=== PATIENT | male | born 1990 | race Two or more races ===

== ENCOUNTER 2024-03-18 15:33 | Emergency (ER) | payer MEDICAID, SELFPAY ==
[2024-03-18 15:34] VITALS: BMI 34.9
[2024-03-18 15:54] VITALS: BP 165/98; PULSE 80; RESP 20; TEMP 37.4; O2SAT 97
--- NOTE | 2024-03-18 15:57 | XR_ITS ---
Examination: CT abdomen and pelvis without contrast. Coronal 3-D reconstructions. Sagittal 2-D reconstructions. Date and time of exam:March 18, 2024 1622 hours INDICATIONS: Onset right-sided flank pain today CTDI: vol (mGy): 12.5 DLP: (mGycm): 836 Technique: Axial images of the abdomen have been obtained, 3 mm slice thickness Intravenous contrast material has not been administered. Low dose protocols were performed. One or more of the following dose reduction techniques were used; automated exposure control, adjustment of the mA and/or KV according to patient size, use of iterative reconstruction technique. Findings: Diffuse fatty infiltration throughout the liver Contracted gallbladder Spleen not enlarged No pancreatic or adrenal mass No renal or ureteral calculi, however, there is minimal inflammatory change along the entire course of the right ureter 17 mm left renal cyst Aorta normal size Normal appendix No bowel obstruction No diverticulitis No bladder mass or bladder calculi No prostatomegaly IMPRESSION: No renal or ureteral calculi, however, there is minimal inflammatory change along the entire course of the right ureter, consider right urinary tract infection
--- NOTE | 2024-03-18 15:57 | PD.EDRME ---
Rapid Medical Screening Exam RME Arrival date/time: 03/18/24 15:33 33-year-old male presents emergency department complains of right flank pain radiating to the right inguinal region Chief Complaint: Abdominal Pain Time Seen by Provider: 03/18/24 15:44 Vital signs: Vital Signs Temperature 99.3 F 03/18/24 15:54 Pulse Rate 80 03/18/24 15:54 Respiratory Rate 20 03/18/24 15:54 Blood Pressure 165/98 H 03/18/24 15:54 Pulse Oximetry (%) 97 03/18/24 15:54 Oxygen Delivery Method Room Air 03/18/24 15:54
[2024-03-18] MEDS: ONDANSETRON ODT 4 MG TABRAP PO (16:09)
[2024-03-18] MEDS: KETOROLAC INJ 30 MG/ML VIAL IM (16:10)
[2024-03-18 16:29] LABS: Basophils # (Auto) 0.1 Thou/mm3 (0.0-0.2); Basophils % (Auto) 0 % (0-2.5); Eosinophils # (Auto) 0.3 Thou/mm3 (0.0-0.5); Eosinophils % (Auto) 2 % (0-10); Hematocrit 43.5 % (41.0-53.0); Immature Granulocytes % (Auto) 1 % (0-0); Immature Granulocytes Auto 0.07 Thou/mm3 (0.00-0.00); Lymphocytes # (Auto) 2.3 Thou/mm3 (1.0-4.8); Lymphocytes % (Auto) 17 % (10-50); Mean Corpuscular HGB Conc 34.5 g/dl (31.0-37.0); Mean Corpuscular Volume 87 fL (80-100); Monocytes % (Auto) 7 % (0-12); Neutrophils # (Auto) 9.8 Thou/mm3 (1.8-7.7); Neutrophils % (Auto) 73 % (37-80); Nucleated Red Blood Cell % 0 /100 WBC (0); Platelet Count 290 Thou/mm3 (140-440); RDW Standard Deviation 39.4 fL (35.1-43.9); White Blood Count 13.5 Thou/mm3 (3.8-10.6)
[2024-03-18 16:49] LABS: Alanine Aminotransferase 48 U/L (10-49); Albumin, Serum 4.7 gm/dL (3.5-5.0); Albumin/Globulin Ratio 1.7 (1.2-2.2); Alkaline Phosphatase 82 U/L (46-116); Anion Gap 4 (7-16); Aspartate Amino Transferase 20 U/L (0-34); BUN/Creatinine Ratio 10 Ratio (12-20); Bilirubin,Total 0.5 mg/dL (0.3-1.2); Blood Urea Nitrogen 12 mg/dL (9-23); Chloride 107 mMol/L (98-107); Creatinine (Component) 1.2 mg/dL (0.6-1.3); Estimated Creatinine Clearance 102.5 mL/min (>60); Globulin 2.7 gm/dL (2.3-3.5); Glucose 110 mg/dL (74-106); Lipase 32 U/L (12-53); Osmolality,Calculated 280 (275-295); Potassium 4.6 mMol/L (3.4-5.1); Sodium 140 mMol/L (136-145); Total Protein 7.4 gm/dL (5.7-8.2); eGFR > 60 See Note
[2024-03-18 18:03] LABS: Collection Type, Urine Clean Catch; Squamous Epithelial Cell,Urine 0 /hpf (0-5)
[2024-03-18 18:31] LABS: Bacteria,Urine 3+; Bilirubin,Urine Negative (Negative); Blood,Urine 3+ (Negative); Color,Urine Yellow (Lt Yel-Yel); Glucose, Urine Negative (Negative); Ketones,Urine Negative (Negative); Leukocyte Esterase,Urine Positive (Negative); Nitrite,Urine Positive (Negative); Protein,Urine 3+ (Neg - Trace); RBC,Urine 44 /hpf (0-3); Specific Gravity,Urine 1.025 (1.001-1.035); Urobilinogen,Urine Negative mg/dL (0.0-1.0); WBC,Urine 555 /hpf (0-5)
[2024-03-18 18:32] LABS: Clarity,Urine Turbid (Clear/Hazy); Culture Indicated,Urine Yes
[2024-03-18 18:44] LABS: Amphetamine/Methamp Scrn,U Negative (Negative); Barbiturate Screen,Urine Negative (Negative); Benzodiazepines Screen,Urine Negative (Negative); Benzoylecgonine Screen, Ur Negative (Negative); Fentanyl Screen,Urine Negative (Negative); Opiate Screen,Urine Negative (Negative); THC Screen,Urine Positive (Negative)
[2024-03-18 20:31] VITALS: BP 169/107; PULSE 80; RESP 18; TEMP 36.7; O2SAT 99
--- NOTE | 2024-03-18 20:53 | PD.EDABDPN ---
ED Abdominal Pain RME/HPI General Chief Complaint: Abdominal Pain Stated complaint: Right flank pain radiating to L Abdomen Time seen by provider: 03/18/24 15:44 Arrival date/time: 03/18/24 15:33 RME / HPI RME / HPI narrative: 33-year-old male presents emergency department complains of right flank pain radiating to the right inguinal region. Onset of symptoms since yesterday. Severity of symptoms mild. Also complained of dysuria. Denies any fever. Denies any vomiting. Denies any other complaints. Related Data Previous Rx's ?Medication ?Instructions ?Recorded amoxicillin 875 mg tablet 875 mg PO BID #20 tabs 09/15/23 ondansetron 4 mg disintegrating 4 mg PO Q8H #14 tabs 09/15/23 tablet cefuroxime axetil 500 mg tablet 500 mg PO BID #14 tabs 03/18/24 Allergies Allergy/AdvReac Type Severity Reaction Status Date / Time No Known Allergies Allergy Verified 08/18/23 20:26 Review of Systems Review of Systems Narrative Review of Systems: Review of system reviewed and within normal limits except mentioned in HPI ED Exam Narrative Physical exam: VITAL SIGNS: Reviewed. GENERAL APPEARANCE: Alert and interactive, follows commands, no acute distress, HEAD AND FACE: Non-traumatic. ENT: PERRL, pink conjunctivitis, eyelid no trauma, Mucous membrane moist. NECK: Supple, nontender, no nuchal rigidity. CHEST: No tenderness, no crepitus, no paradoxical movement, no retractions. LUNGS: Clear, well ventilated, symmetric, no rales, no wheezing, no ronchi, no stridor, good breath sounds bilaterally. HEART: Regular rate, regular rhythm, no murmur, no gallops. ABDOMEN: Soft, positive bowel sounds, nondistended, no guarding, nontender, no rebound, no masses, RECTAL: Deferred. GENITAL: Deferred. NEUROLOGICAL: Gross motor function intact sensory function intact, Appropriate for age. MUSCULOSKELETAL: low back nontender, full range of motion. EXTREMITIES: Nontender, full range of motion. SKIN: Color pink, dry, no rash, no lacerations, no abrasions, no contusions. LYMPHATICS: Deferred. Course Quality Measures none Orders Category Date Time Status CT abdomen pelvis wo con Stat Exams 03/18/24 15:57 Completed CBC Stat Lab 03/18/24 16:06 Completed Comprehensive Metabolic Panel Stat Lab 03/18/24 16:06 Completed Drug Screen,Urine Stat Lab 03/18/24 17:41 Completed Lipase Stat Lab 03/18/24 16:06 Completed UA, C/S IF [Urinalysis, C/S if Indicated] Stat Lab 03/18/24 17:41 Completed Urine Culture Stat Lab 03/18/24 17:41 Received Ketorolac Inj [Toradol Inj] Med 03/18/24 15:56 Discontinued 30 mg IM X1 ONE Ondansetron Odt [Zofran Odt] Med 03/18/24 15:56 Discontinued 4 mg PO X1 ONE cefTRIAXone [Rocephin] 1,000 mg Med 03/18/24 20:48 Discontinued Lidocaine 1% 20 ml [Xylocaine 1% 20 ML] 2.1 ml IM X1 Vital Signs Vital signs: Vital Signs Temperature 99.3 F 03/18/24 15:54 Pulse Rate 80 03/18/24 15:54 Respiratory Rate 20 03/18/24 15:54 Blood Pressure 165/98 H 03/18/24 15:54 Pulse Oximetry (%) 97 03/18/24 15:54 Oxygen Delivery Method Room Air 03/18/24 15:54 Abdominal Pain MDM MDM Narrative MDM Narrative:: 33-year-old male presents emergency department complains of right flank pain radiating to the right inguinal region. Onset of symptoms since yesterday. Severity of symptoms mild. Also complained of dysuria. Denies any fever. Denies any vomiting. Denies any other complaints. Laboratory workup significant for UTI. And slight leukocytosis of 13.5. Creatinine is normal. CT scan of the abdomen and pelvis came back unremarkable. Results discussed with the patient. Patient received ceftriaxone IM Patient data External records reviewed:: None Clinical information provided by:: none Social determinants that could affect healthcare access:: none Patient has the following chronic illnesses:: None How is presenting disease/condition affected by chronic disease/condition?: no chronic disease Evaluation data The following diagnostics were reviewed and interpreted by me:: lab results and radiology exam(s) Lab and/or radiology exams considered but not ordered:: None Interpretation Summary: Laboratory workup significant for UTI. And slight leukocytosis of 13.5. Creatinine is normal. CT scan of the abdomen and pelvis came back unremarkable. Results discussed with the patient. Patient received ceftriaxone IM Medications / Prescriptions Medications or Prescriptions considered but not ordered:: None Medication administrations:: Medication Administration History Discontinued Medications Ceftriaxone Sodium 1,000 mg/ (Lidocaine HCl 2.1 ml) 0 mg IM X1 ONE Stop: 03/18/24 20:49 Ketorolac Tromethamine (Ketorolac Inj 30 Mg/Ml Vial) 30 mg IM X1 ONE Stop: 03/18/24 15:57 Last Admin: 03/18/24 16:10 Dose: 30 mg Documented By: Ondansetron HCl (Ondansetron Odt 4 Mg Tabrap) 4 mg PO X1 ONE; Protocol Stop: 03/18/24 15:57 Last Admin: 03/18/24 16:09 Dose: 4 mg Documented By: Ceftriaxone IM, Toradol and Zofran Consultations Consultation(s) initiated? (list below): No Diagnosis Differential diagnosis abdominal pain: abdominal pain and acute appendicitis Most likely diagnosis given after review of the tests above:: Urinary tract infection Admission Indicated Admission indicated?: indicated Admission Request Was there a request for admission?: No Disposition Plan Disposition Plan: Discharge Discharge Attestation Discharge Attestation: The patient was given an opportunity to ask questions and understood the discharge instructions. Discharge instructions specifically effects, indications for sooner follow up or return to the emergency department, and the expected course of current diagnosis. Patient condition: Stable Discharge Plan Plan Patient Disposition: HOME (Self Care) Disposition Comment: stable Prescriptions/Referrals Prescriptions/Med Rec: New cefuroxime axetil 500 mg tablet 500 mg PO BID Qty: 14 0RF No Action amoxicillin 875 mg tablet 875 mg PO BID Qty: 20 0RF ondansetron 4 mg tablet,disintegrating 4 mg PO Q8H Qty: 14 0RF Referrals: Josesito Rothman MD [Primary Care Provider] - In 1 week Problem List Clinical Impression: UTI (urinary tract infection) Patient/Caregiver Discharge Instructions Discharge Activity: activity as tolerated Education Materials: Understanding Urinary Tract ... Additional Instructions: Thank you for the opportunity for serving you today. You are stable for discharged . You are advised to: Follow-up with your PCP in 1 to 2 days Return to ED for worsening of symptoms Increase oral fluids Take medication as prescribed Print Language: [place]i Stand Alone Forms: Kanchan Award Info., Patient Portal Info Letter PREMA/SIVAN Supervising Physician PREMA/SIVAN Supervising Physician: MD Edison
[2024-03-18] MEDS: cefTRIAXone 1,000 MG, LIDOCAINE 1% 20 ML 2.1 ML IM (20:57)
== END 2024-03-18 21:01 | disposition home or self-care (01) ==
PROVIDERS: Nurse Practitioner Primary Care; Emergency Provider Emergency Medicine; PCP Family Medicine
DX: N39.0 Urinary tract infection, site not specified (principal); R10.9 Unspecified abdominal pain
CPT/HCPCS: 36415; 74176; 80053; 80307; 81001; 83690; 85025; 87077; 87086; 87186; 96372; 99284; J0696; J1885; J3490; Q0162

== ENCOUNTER 2024-12-05 22:37 | Emergency (ER) | payer MEDICAID, SELFPAY ==
[2024-12-05 22:39] VITALS: BMI 34.9
--- NOTE | 2024-12-05 22:41 | XR_ITS ---
Examination: Hand, right 3 views Technique: Hand AP, oblique, lateral 3 views Date and time of exam: December 05, 2024 10:40 PM INDICATIONS: Punching injury to the hand today, hand pain. FINDINGS: Acute impacted mildly angulated fracture distal fourth metacarpal No dislocation No foreign body IMPRESSION: Acute fracture distal fourth metacarpal
[2024-12-05 23:36] VITALS: BP 144/80; PULSE 91; RESP 18; TEMP 36.6; O2SAT 97
[2024-12-06] MEDS: IBUPROFEN TAB 600 MG TABLET PO (00:48)
--- NOTE | 2024-12-06 01:05 | EDNOTE_ITS ---
Upper Extremity Injury RME/HPI General Chief Complaint: Hand/Wrist Problems Stated Complaint: RIGHT HAND INJURY Time Seen by Provider: 12/05/24 23:42 Arrival date/time: 12/05/24 22:37 RME / HPI RME / HPI narrative: 34-year-old male presents to the ED with complaint of right hand pain and swelling secondary to an injury he sustained last Friday or Friday when he punched the corner of a wall. He was angry at the time. He denies any previous injury of the right hand. He denies any numbness or tingling distally. Related Data Previous Rx's ?Medication ?Instructions ?Recorded amoxicillin 875 mg tablet 875 mg PO BID #20 tabs 09/14 ondansetron 4 mg disintegrating 4 mg PO Q8H #14 tabs 0 09/15/23 tablet cefuroxime axetil 500 mg tablet 500 mg PO BID #14 tabs 03/18/24 ibuprofen 600 mg tablet 600 mg PO Q8H PRN pain #30 t abs 12/06/24 Allergies Allergy/AdvReac Type Severity Reaction Status Date / Time No Known Allergies Allergy Verified 12/05/24 22:38 Review of Systems Review of Systems Systems Reviewed: All systems reviewed, normal except as documented Past Medical History Past Medical History CARDIAC: Negative Congestive Heart Failure RESPIRATORY: Negative Chronic Obstructive Pulmonary Disease (COPD) GENITOURINARY: Negative Renal Disease ENDOCRINE: Negative Diabetes Mellitus Type 1 or Diabetes Mellitus Type 2 Social History SMOKING STATUS: Never smoker ED Exam Narrative Physical exam: A&O, afebrile and non-toxic appearing 34-year-old male, no acute distress. Lung sounds are clear, RRR. Right hand swelling with tenderness to the 3rd, 4th, and 5th MCP joints. Significant pain to the fourth MCP joint. CMS intact distally. Moves all extremities well. Course Course Course Narrative: XR right hand reveals: Acute fracture, distal fourth metacarpal. Patient was given ibuprofen 600 mg p.o. Ulnar gutter splint and sling placed on the patient. CMS intact distally. Patient feels much improved after splint placement. Quality Measures none Orders Category Date Time Status Splint / Immobilizer STAT Care 12/06/24 00:41 Active XR hand comp RT min 3V Stat Exams 12/05/24 22:41 Completed Ibuprofen Tab [Motrin Tab] Med 12/06/24 00:41 Discontinued 600 mg PO X1 ONE Vital Signs Vital signs: Vital Signs Temperature 98 F 12/05/24 23:36 Pulse Rate 91 12/05/24 23:36 Respiratory Rate 18 12/05/24 23:36 Blood Pressure 144/80 H 12/05/24 23:36 Pulse Oximetry (%) 97 12/05/24 23:36 Oxygen Delivery Method Room Air 12/05/24 23:36 Extremity Injury MDM Narrative MDM Narrative:: Symptoms, exam and diagnostic studies are consistent with: Right distal fourth metacarpal fracture/boxer's fracture. Patient was discharged home in stable condition. Patient/family advised to follow-up with their PCP in 24-48 hours. Encouraged to return to the ED for any new or worsening symptoms. Patient data External records reviewed:: None Clinical information provided by:: patient Social determinants that could affect healthcare access:: none Patient has the following chronic illnesses:: N/A How is presenting disease/condition affected by chronic disease/condition?: no chronic disease Evaluation data The following diagnostics were reviewed and interpreted by me:: radiology exam(s) Lab and/or radiology exams considered but not ordered:: N/A Interpretation Summary: As noted above Medications / Prescriptions Medications or Prescriptions considered but not ordered:: N/A Medication administrations:: Medication Administration History Discontinued Medications Ibuprofen (Ibuprofen Tab 600 Mg Tablet) 600 mg PO X1 ONE Stop: 12/06/24 00:42 Last Admin: 12/06/24 00:48 Dose: 600 mg Documented By: CVL As noted above Consultations Consultation(s) initiated? (list below): No Diagnosis Upper Extremity Injury Differential Diagnosis: sprain and strain of wrist, fracture of wrist, fracture of hand and other (Metacarpal fracture/boxer fracture) Most likely diagnosis given after review of the tests above:: Fourth distal metacarpal fracture/boxer's fracture. Admission Indicated Admission indicated?: not indicated Explain why admission is indicated or not indicated:: Patient is stable for discharge Admission Request Was there a request for admission?: No Admission Attestation Admission request attestation: N/A Disposition Plan Disposition Plan: Discharge Discharge Attestation Discharge Attestation: The patient and all family members were given an opportunity to ask questions and understood the discharge instructions. Discharge instructions specifically effects, indications for sooner follow up or return to the emergency department, and the expected course of current diagnosis. Patient condition: Stable Discharge Plan Plan Patient Disposition: HOME (Self Care) Discharge Disposition comment: Stable and improved Prescriptions/Referrals Prescriptions/Med Rec: New ibuprofen 600 mg tablet 600 mg PO Q8H PRN (Reason: pain) Qty: 30 0RF No Action amoxicillin 875 mg tablet 875 mg PO BID Qty: 20 0RF ondansetron 4 mg tablet,disintegrating 4 mg PO Q8H Qty: 14 0RF cefuroxime axetil 500 mg tablet 500 mg PO BID Qty: 14 0RF Problem List Clinical Impression: Boxer's metacarpal fracture, neck, closed Patient/Caregiver Discharge Instructions Education Materials: ED Closed Hand Fracture (Adult) Additional Instructions: Keep the splint in place until you are seen by an orthopedic doctor. Take the ibuprofen as needed for pain and swelling. Ice and elevate the right hand to help with pain and swelling. Follow-up with your primary care physician in 24 to 48 hours for referral to an mechanical engineering specialist. Return to the ED for any new or worsening symptoms. Print Language: [place]an Stand Alone Forms: Kanchan Award Info., Patient Portal Info Letter PA/[employer] Supervising Physician PREMA/SIVAN Supervising Physician: Dr. Regalado
[2024-12-06 01:19] VITALS: RESP 12
== END 2024-12-06 01:20 | disposition home or self-care (01) ==
PROVIDERS: Emergency Provider Emergency Medicine; PCP Family Medicine
DX: S62.394A Other fracture of fourth metacarpal bone, right hand, initial encounter for closed fracture (principal); W22.09XA Striking against other stationary object, initial encounter
CPT/HCPCS: 29125; 73130; 99283; A9270

== ENCOUNTER → 2024-12-13 | Outpatient (CLI) | payer MEDICAID, SELFPAY ==
--- NOTE | 2024-12-13 16:41 | XR_ITS ---
Examination: Hand, right 3 views Technique: Hand AP, oblique, lateral 3 views Date and time of exam: December 13, 2024 1644 hours INDICATIONS: Right hand and wrist pain beginning 3 days ago. FINDINGS: Acute fracture distal fourth metacarpal, with impaction and mild angulation No dislocation IMPRESSION: Acute fracture distal fourth metacarpal
--- NOTE | 2024-12-13 16:41 | XR_ITS ---
Examination: Wrist, right 3 views Technique: Wrist AP, oblique, lateral 3 views Date and time of exam: December 13, 2024 1644 hours INDICATIONS: Injury to wrist 3 days ago, wrist pain. FINDINGS: Acute fracture distal fourth metacarpal Carpal bones intact No dislocation IMPRESSION: Acute fracture distal fourth metacarpal without significant displacement
== END | disposition home or self-care (01) ==
PROVIDERS: PCP Physician Assistant; Referring Provider Nurse Practitioner Gerontology; Visit Provider Nurse Practitioner Gerontology
DX: S62.304A Unspecified fracture of fourth metacarpal bone, right hand, initial encounter for closed fracture (principal); X58.XXXA Exposure to other specified factors, initial encounter
CPT/HCPCS: 73110; 73130

== ENCOUNTER → 2025-01-04 | Outpatient (CLI) | payer MEDICAID, SELFPAY ==
--- NOTE | 2025-01-04 16:44 | XR_ITS ---
Examination: Wrist, right 3 views Technique: Wrist AP, oblique, lateral 3 views Date and time of exam: January 04, 2025, 1726 hrs., Comparison December 13, 2024. Indications: Injury to the wrist one month ago, wrist pain. Findings: Significant healing fracture distal fourth metacarpal with stable and satisfactory alignment Impression: Significant healing fracture distal fourth metacarpal with stable and satisfactory alignment.
--- NOTE | 2025-01-04 16:44 | XR_ITS ---
Examination: Hand, right 3 views Technique: Hand AP, oblique, lateral 3 views Date and time of exam: January 04, 2025, 1726 hrs., Comparison December 13, 2024 Indications: Injury to the hand one month ago, pain, fracture fourth metacarpal Findings: Significant healing fracture distal fourth metacarpal with stable and satisfactory alignment Impression: Significant healing fracture distal fourth metacarpal with stable and satisfactory alignment.
== END | disposition home or self-care (01) ==
PROVIDERS: PCP Family Medicine; Referring Provider Surgery; Visit Provider Surgery
DX: S62.304A Unspecified fracture of fourth metacarpal bone, right hand, initial encounter for closed fracture (principal); X58.XXXA Exposure to other specified factors, initial encounter
CPT/HCPCS: 73110; 73130

== ENCOUNTER → 2025-01-18 | Outpatient (CLI) | payer MEDICAID, SELFPAY ==
--- NOTE | 2025-01-18 16:34 | XR_ITS ---
Examination: Hand, right 3 views Technique: Hand AP, oblique, lateral 3 views Date and time of exam: January 18, 2025 1651 hours INDICATIONS: Punching injury to the hand November 27, 2024 with pain FINDINGS: Acute impacted fracture fourth metacarpal neck Digits intact IMPRESSION: Acute impacted fracture fourth metacarpal neck without significant displacement
--- NOTE | 2025-01-18 16:34 | XR_ITS ---
Examination: Wrist, right 3 views Technique: Wrist AP, oblique, lateral 3 views Date and time of exam: January 18, 2025 1651 hours INDICATIONS: Punching injury to the hand and wrist 4 days ago, pain FINDINGS: Acute impacted fracture fourth metacarpal neck No significant displacement Carpal bones radius ulna appear intact IMPRESSION: Acute impacted fracture fourth metacarpal neck
== END | disposition home or self-care (01) ==
LOC: CDIM 16:28
PROVIDERS: PCP Family Medicine; Referring Provider Nurse Practitioner Gerontology; Visit Provider Nurse Practitioner Gerontology
DX: S62.334A Displaced fracture of neck of fourth metacarpal bone, right hand, initial encounter for closed fracture (principal); X58.XXXA Exposure to other specified factors, initial encounter
CPT/HCPCS: 73110; 73130

== ENCOUNTER → 2025-02-09 | Outpatient (CLI) | payer MEDICAID, SELFPAY ==
--- NOTE | 2025-02-09 09:43 | XR_ITS ---
Examination: Hand, right 3 views Technique: Hand AP, oblique, lateral 3 views Date and time of exam: February 09, 2025, 0946 hours INDICATIONS: Acute impacted fracture fourth metacarpal neck on plain films of the hand 01/18/2025 FINDINGS: Interval significant healing fracture distal fourth metacarpal No new fractures IMPRESSION: Interval significant healing fracture distal fourth metacarpal with stable and satisfactory alignment
== END | disposition home or self-care (01) ==
PROVIDERS: PCP Physician Assistant Medical; Referring Provider Nurse Practitioner Gerontology; Visit Provider Nurse Practitioner Gerontology
DX: S62.394A Other fracture of fourth metacarpal bone, right hand, initial encounter for closed fracture (principal); X58.XXXA Exposure to other specified factors, initial encounter
CPT/HCPCS: 73130

== ENCOUNTER 2025-03-28 12:18 | Emergency (ER) | payer MEDICAID, SELFPAY ==
[2025-03-28 12:18] VITALS: BMI 35.9
[2025-03-28 12:24] VITALS: BP 145/98; PULSE 103; RESP 18; TEMP 36.9; O2SAT 98
--- NOTE | 2025-03-28 12:46 | EDNOTE_ITS ---
<Statement entered by Nicole Kate MD - 03/28/25 17:15> As co-signing physician, I was present and available for consult prn. I concur with the plan and care as documented by the midlevel provider. ED Dental RME/HPI General Chief complaint: Dental/Oral/Throat Stated complaint: throat infection Time Seen by Provider: 03/28/25 12:19 Source: patient Arrival date/time: 03/28/25 12:18 34-year-old male with no known medical history presents to the emergency room with a chief complaint of a sore throat x 2 days Mode of arrival: ambulatory Limitations: no limitations Related Data Previous Rx's ?Medication ?Instructions ?Recorded amoxicillin 875 mg tablet 875 mg PO BID #20 tabs 09/14 ondansetron 4 mg disintegrating 4 mg PO Q8H #14 tabs 0 09/15/23 tablet cefuroxime axetil 500 mg tablet 500 mg PO BID #14 tabs 03/18/24 ibuprofen 600 mg tablet 600 mg PO Q8H PRN pain #30 t abs 12/06/24 amoxicillin 875 mg-potassium 1 tab PO BID 7 days #14 t abs 03/28/25 clavulanate 125 mg tablet Allergies Allergy/AdvReac Type Severity Reaction Status Date / Time No Known Allergies Allergy Verified 03/28/25 12:20 Review of Systems Review of Systems Systems Reviewed: All systems reviewed, normal except as documented Constitutional Constitutional: Reports system reviewed and no additional complaints, except as documented, Denies fatigue, Denies fever(s), Denies headache(s) and Denies weakness Eyes Eyes: Reports system reviewed and no additional complaints, except as documented, Denies blurry vision and Denies change in vision ENT Ears, Nose, Mouth, and Throat: Reports system reviewed and no additional complaints, except as documented, Denies otalgia, Denies headache(s), Denies nasal congestion, Reports sore throat, Denies throat swelling and Denies vertigo Cardiovascular Cardiovascular: Reports system reviewed and no additional complaints, except as documented, Denies chest pain, Denies dyspnea and Denies dyspnea on exertion Respiratory Respiratory: Reports system reviewed and no additional complaints, except as documented, Denies chest congestion, Denies cough, Denies dyspnea, Denies dyspnea on exertion and Denies wheezing Gastrointestinal Gastrointestinal: Reports system reviewed and no additional complaints, except as documented, Denies abdominal pain, Denies cramping, Denies nausea and Denies vomiting Genitourinary Genitourinary: Reports system reviewed and no additional complaints, except as documented, Denies dysuria and Denies hematuria Musculoskeletal Musculoskeletal: Reports system reviewed and no additional complaints, except as documented and Denies back pain Integumentary/Breasts Skin/Breast: Reports system reviewed and no additional complaints, except as documented and Denies wounds Neurologic Neurologic: Reports system reviewed and no additional complaints, except as documented, Denies confusion, Denies headache(s), Denies lack of coordination, Denies vertigo and Denies weakness Psychiatric Psychiatric: Reports system reviewed and no additional complaints, except as documented, Denies anxiety, Denies confusion, Denies depression, Denies paranoia, Denies suicidal ideation and Denies tactile hallucinations Endocrine Endocrine: Reports system reviewed and no additional complaints, except as documented and Denies fatigue Hematologic/Lymphatic Hematologic/Lymphatic: Reports system reviewed and no additional complaints, except as documented and Denies lymphadenopathy Allergic/Immunologic Allergic/Immunologic: Reports system reviewed and no additional complaints, except as documented, Denies throat swelling, Denies urticaria and Denies wheezing Past Medical History Past Medical History CARDIAC: Negative Congestive Heart Failure RESPIRATORY: Negative Chronic Obstructive Pulmonary Disease (COPD) GENITOURINARY: Negative Renal Disease ENDOCRINE: Negative Diabetes Mellitus Type 1 or Diabetes Mellitus Type 2 Social History SMOKING STATUS: Never smoker ED Exam General Limitations: Present no limitations General appearance: Present alert and in no apparent distress Head Head exam: Present atraumatic Eye Eye exam: Present normal appearance, PERRL and EOMI ENT ENT exam: Present normal exam, normal oropharynx and mucous membranes moist Expanded ENT Exam Mouth exam: Absent trismus Throat exam: Present tonsillar erythema and tonsillar exudate; Absent R peritonsillar mass, L peritonsillar mass or muffled voice Neck Neck exam: Present normal inspection, full ROM and trachea midline Chest Chest inspection: Present normal inspection and symmetric chest wall rise Respiratory Respiratory exam: Present normal lung sounds bilaterally Cardiovascular Cardiovascular exam: Present regular rate, normal rhythm and normal heart sounds Abdominal Exam Abdominal exam: Present soft and normal bowel sounds Extremities Exam Extremities exam: Present normal inspection and full ROM Back Exam Back exam: Present normal inspection and full ROM Neurological Exam Neurological exam: Present alert, oriented X3 and CN II-XII intact Psychiatric Psychiatric exam: Present normal affect and normal mood Skin Skin exam: Present warm, dry, intact and normal color Course Quality Measures none Orders Category Date Time Status Dexamethasone Inj [Decadron Inj] Med 03/28/25 12:44 Once 10 mg PO X1 ONE cefTRIAXone [Rocephin] 1,000 mg Med 03/28/25 12:44 Ordered Lidocaine 1% Pf Vial 5ml [Xylocaine 1% 5 ml] 2.1 ml IM X1 Vital Signs Vital signs: Vital Signs Temperature 98.4 F 03/28/25 12:24 Pulse Rate 103 H 03/28/25 12:24 Respiratory Rate 18 03/28/25 12:24 Blood Pressure 145/98 H 03/28/25 12:24 Pulse Oximetry (%) 98 03/28/25 12:24 Oxygen Delivery Method Room Air 03/28/25 12:24 Dental / Oral MDM Narrative MDM Narrative:: 34-year-old male with no known medical history presents to the emergency room with a chief complaint of a sore throat x 2 days Patient is hemodynamically stable and in no apparent distress Physical examination shows an erythemic posterior pharynx with exudates to the right tonsillar pillar. There is no trismus there is no peritonsillar abscess Patient a Rocephin was given and the patient was discharged with oral antibiotics Patient was discharged and educated to follow-up with primary care provider in the next 24 to 48 hours and return to the emergency room for any evidence of worsening signs or symptoms Patient data External records reviewed:: [facility] previous records Clinical information provided by:: patient Social determinants that could affect healthcare access:: none Patient has the following chronic illnesses:: No chronic illness How is presenting disease/condition affected by chronic disease/condition?: no chronic disease Evaluation data The following diagnostics were reviewed and interpreted by me:: lab results and radiology exam(s) Lab and/or radiology exams considered but not ordered:: Labs radiology exams considered and ordered Interpretation Summary: N/A Medications / Prescriptions Medications or Prescriptions considered but not ordered:: Medication given Medication administrations:: Medication Administration History Ceftriaxone Sodium 1,000 mg/ (Lidocaine HCl 2.1 ml) 0 mg IM X1 ONE Stop: 03/28/25 12:45 Dexamethasone Sodium Phosphate (Dexamethasone Sod Phos Inj 10 Mg/Ml Vial) 10 mg PO X1 ONE Stop: 03/28/25 12:45 Medication given Consultations Consultation(s) initiated? (list below): No Diagnosis Dental Differential Diagnosis: other (Pharyngitis/URI/[employer]) Most likely diagnosis given after review of the tests above:: Pharyngitis Admission Indicated Admission indicated?: not indicated Admission Request Was there a request for admission?: No Disposition Plan Disposition Plan: Discharge Discharge Attestation Discharge Attestation: The patient and all family members were given an opportunity to ask questions and understood the discharge instructions. Discharge instructions specifically effects, indications for sooner follow up or return to the emergency department, and the expected course of current diagnosis. Patient condition: Stable Discharge Plan Plan Patient Disposition: HOME (Self Care) Discharge Disposition comment: Stable Prescriptions/Referrals Prescriptions/Med Rec: New amoxicillin-pot clavulanate 875-125 mg tablet 1 tab PO BID 7 Days Qty: 14 0RF No Action amoxicillin 875 mg tablet 875 mg PO BID Qty: 20 0RF ondansetron 4 mg tablet,disintegrating 4 mg PO Q8H Qty: 14 0RF cefuroxime axetil 500 mg tablet 500 mg PO BID Qty: 14 0RF ibuprofen 600 mg tablet 600 mg PO Q8H PRN (Reason: pain) Qty: 30 0RF Problem List Clinical Impression: Pharyngitis Patient/Caregiver Discharge Instructions Education Materials: When You Have a Sore Throat, Self-Care for Sore Throats Additional Instructions: Please follow-up with your primary care provider in the next 24 to 48 hours Antibiotics are sent to your pharmacy please pick them up and take them as indicated For any evidence of worsening signs or symptoms return to the emergency room immediately Print Language: Azerbaijani Stand Alone Forms: Kanchan Award Info., Patient Portal Info Letter, Work/School Release PA/CERTIFIED CODER Supervising Physician PREMA/CERTIFIED CODER Supervising Physician: Dr. Carballo
[2025-03-28] MEDS: DEXAMETHASONE SOD PHOS INJ 10 MG/ML VIAL PO (12:52)
== END 2025-03-28 13:07 | disposition home or self-care (01) ==
LOC: SERX 12:58
PROVIDERS: Emergency Provider Emergency Medicine; PCP Family Medicine
DX: J02.9 Acute pharyngitis, unspecified (principal)
CPT/HCPCS: 96372; 99282; J0696; J1100; J3490